=== PATIENT | female | born 1945 | race Caucasian/White ===

== ENCOUNTER → 2017-07-22 | Outpatient (CLI) | payer OTHER ==
[~2017-07-22] MED LIST: MELOXICAM7.5 MG PO; VITAMIN B122500 MCG PO; VITAMIN D-3 401 EACH PO
== END | disposition home or self-care (01) ==
LOC: OPR 07-16 08:00 → EDSTATUS 08:00
DX: C7A.8 Other malignant neuroendocrine tumors (principal); K57.30 Diverticulosis of large intestine without perforation or abscess without bleeding
CPT/HCPCS: 77012; 88307; 88341 TC; 88342 TC; J3010